=== PATIENT | male | born 1945 | race Caucasian/White ===

== ENCOUNTER 2020-11-04 19:43 | Observation (INO) ==
[2020-11-04] MEDS ORDERED: Isovue-370 500 ML BOTTLE IVP ONE (19:55)
[2020-11-04 20:08] LABS: Hematocrit 48.1 % (37.5-50.1); Hemoglobin 16.2 g/dL (12.9-16.9); Mean Corpuscular HGB Conc 33.7 g/dL (31.6-35.5); Mean Corpuscular Hemoglobin 32.8 pg (28.0-33.3); Mean Corpuscular Volume 97.4 fL (83.0-100.0); Mean Platelet Volume 10.6 fL (9.4-12.4); Platelet Count 194 K/mcL (140-400); Red Blood Count 4.94 M/mcL (4.19-5.50); Red Cell Distribution Width 12.7 % (11.5-14.5); White Blood Count 8.4 K/mcL (4.3-11.1)
[2020-11-04 20:18] LABS: Activated Partial Thrombo Time 31.9 Seconds (26.0-36.0)
[2020-11-04 20:30] LABS: BUN/Creatinine Ratio 16 (6-26); Blood Urea Nitrogen 17 mg/dL (8-23); Calcium 9.7 mg/dL (8.6-10.3); Carbon Dioxide 26 mEq/L (23-29); Chloride 106 mEq/L (98-107); Ethanol 19 mg/dL (Less than 10); Glucose 97 mg/dL (70-105); Osmolality,Calculated 291 (280-300); Potassium 3.7 mEq/L (3.5-5.1); Sodium 140 mEq/L (136-145); eGFR For African Americans > 60 (> 60); eGFR For Non-African Americans > 60 (> 60)
[2020-11-04 20:31] LABS: Troponin I < 0.03 ng/mL (< 0.04)
[2020-11-04 21:16] LABS: Bilirubin,Urine Negative (Negative); Blood,Urine Negative (Negative); Clarity,Urine Clear (Clear); Color,Urine Colorless (Yellow); Glucose,Urine (UA) Normal (Normal); Ketones,Urine Negative (Negative); Leukocyte Esterase,Urine Negative (Negative); Nitrite,Urine Negative (Negative); Protein,Urine Negative (Neg-Trace); Specific Gravity,Urine 1.017 (1.010-1.025); Urobilinogen,Urine Normal (Normal)
[2020-11-04] MEDS ORDERED: Aspirin 325 MG TABLET PO ONE (21:30)
[2020-11-04] MEDS ORDERED: Acetaminophen 325 MG TABLET PO PRN (22:02)
[2020-11-04] MEDS ORDERED: Naloxone 0.4 MG/ML INJ IVP PRN (22:02)
[2020-11-04] MEDS ORDERED: Ondansetron ODT 4 MG TAB.RAPDIS SL PRN (22:02)
[2020-11-05 04:02] LABS: Basophils # 0.1 K/mcL (0.0-0.2); Basophils % 0.7 %; Eosinophils # 0.2 K/mcL (0.0-0.6); Eosinophils % 2.4 %; Hematocrit 45.5 % (37.5-50.1); Immature Granulocytes % 0.4 % (0-4); Lymphocytes # 1.3 K/mcL (0.6-4.6); Lymphocytes % 18.7 %; Mean Corpuscular Hemoglobin 32.7 pg (28.0-33.3); Mean Corpuscular Volume 99.1 fL (83.0-100.0); Mean Platelet Volume 10.8 fL (9.4-12.4); Monocytes # 0.8 K/mcL (0.0-1.3); Monocytes % 10.8 %; Neutrophils # 4.8 K/mcL (1.6-8.9); Platelet Count 170 K/mcL (140-400); Red Blood Count 4.59 M/mcL (4.19-5.50); Red Cell Distribution Width 12.7 % (11.5-14.5); White Blood Count 7.2 K/mcL (4.3-11.1)
[2020-11-05 04:22] LABS: Alanine Aminotransferase 15 Units/L (7-52); Albumin 3.7 g/dL (3.5-5.7); Albumin/Globulin Ratio 1.4 (1.1-2.2); Alkaline Phosphatase 76 Units/L (34-104); Aspartate Amino Transferase 16 Units/L (13-39); BUN/Creatinine Ratio 17 (6-26); Bilirubin,Total 0.4 mg/dL (0.3-1.0); Blood Urea Nitrogen 18 mg/dL (8-23); Calcium 9.3 mg/dL (8.6-10.3); Carbon Dioxide 28 mEq/L (23-29); Chloride 107 mEq/L (98-107); Chol/HDL Ratio 2.7 (0-4.9); Cholesterol 126 mg/dL (< 200); Globulin 2.6 g/dL (2.4-3.5); Glucose 98 mg/dL (70-105); HDL Cholesterol 46 mg/dL (40-59); LDL Cholesterol,Calculated 62 mg/dL (< 100); Magnesium 2.1 mg/dL (1.6-2.6); Osmolality,Calculated 294 (280-300); Phosphorous 3.7 mg/dL (2.7-4.5); Potassium 4.2 mEq/L (3.5-5.1); Sodium 141 mEq/L (136-145); Total Protein 6.3 g/dL (6.4-8.9); Triglycerides 91 mg/dL (< 150); eGFR For African Americans > 60 (> 60); eGFR For Non-African Americans > 60 (> 60)
[2020-11-05 04:34] LABS: Thyroid Stimulating Hormone 3.608 mcIU/mL (0.340-5.600)
[2020-11-05 04:45] LABS: Folate 8.3 ng/mL (3.0-16.0)
[2020-11-05] MEDS ORDERED: Perflutren Lipid Microsphere 1.3 ML in 0.9 % Sodium Chloride 8.7 ML IVP PRN (08:50)
[2020-11-05] MEDS ORDERED: Aspirin 81 MG TAB.CHEW PO SCH (10:15)
[2020-11-05] MEDS ORDERED: lisinopriL 5 MG TABLET PO SCH (10:15)
[2020-11-05] MEDS ORDERED: Cyanocobalamin (B-12) 1,000 MCG TABLET PO SCH (10:15)
[2020-11-05 11:30] VITALS: BP 147/81
[2020-11-06] MEDS ORDERED: lisinopriL 5 MG TABLET PO SCH (09:00)
== END 2020-11-05 13:57 | disposition home or self-care (01) ==
LOC: EMEROOARM 19:43 → 3BNU 19:43 → SUATTDRO 21:49 → 3BNU 22:34
PROVIDERS: ADMIT Student in an Organized Health Care Education/Training Program; ATTEND Internal Medicine

== ENCOUNTER 2021-11-26 12:45 | Inpatient (IN) ==
[2021-11-26] MEDS ORDERED: CeFAZolin Syr 2,000MG/20 ML 2,000 MG/20 ML SYRINGE IVPB ONE ×2 (13:15→14:15)
[2021-11-26] MEDS ORDERED: Ringers Solution, Lactated 1,000 ML IVC SCH (13:15)
[2021-11-26] MEDS ORDERED: Ondansetron 4 MG/2 ML VIAL ONE (13:17)
[2021-11-26] MEDS ORDERED: Lidocaine HCL 4 ML Topical Solution (Laryng-O-Jet Kit Sterile Pak) TP ONE (13:17)
[2021-11-26] MEDS ORDERED: Lidocaine -MPF 2% 5 ML VIAL ONE ×2 (13:17→19:13)
[2021-11-26] MEDS ORDERED: *HR* Rocuronium Bromide 50 MG/5 ML VIAL ONE (13:17)
[2021-11-26] MEDS ORDERED: *HR* Propofol 200 MG/20 ML VIAL IVP ONE (13:20)
[2021-11-26] MEDS ORDERED: *HR* FentaNYL (PF) 100 MCG/2 ML VIAL ONE ×2 (13:20→17:44)
[2021-11-26] MEDS ORDERED: ceFAZolin 1,000 MG, Sodium Chloride IRRigation 1,000 ML IR ONE (14:00)
[2021-11-26] MEDS ORDERED: *HR* FentaNYL (PF) 100 MCG/2 ML VIAL IVP PRN (14:12)
[2021-11-26] MEDS ORDERED: *HR* Remifentanil 2 MG VIAL IVP ONE (14:49)
[2021-11-26] MEDS ORDERED: Protamine Sulfate 50 MG/5 ML VIAL IVP ONE (15:12)
[2021-11-26] MEDS ORDERED: Heparin 1,000 UNITS/500 mL 500 ML ONE (15:12)
[2021-11-26] MEDS ORDERED: EPHEDrine 50 MG/ML VIAL ONE (15:58)
[2021-11-26] MEDS ORDERED: *HR* Heparin 5,000 UNIT/ML VIAL ONE ×2 (17:03→17:51)
[2021-11-26] MEDS ORDERED: Sugammadex Sodium 200 MG/2 ML VIAL IV ONE (18:50)
[2021-11-26] MEDS ORDERED: *HR* Labetalol 20 MG/4 ML SYRINGE IVP ONE (19:26)
[2021-11-26] MEDS ORDERED: Naloxone 0.4 MG/ML INJ IVP PRN (20:36)
[2021-11-26] MEDS ORDERED: Benzonatate 100 MG CAPSULE PO PRN (20:36)
[2021-11-26] MEDS ORDERED: Ondansetron 4 MG/2 ML VIAL IVP PRN (20:36)
[2021-11-26] MEDS ORDERED: *HR* Labetalol 20 MG/4 ML SYRINGE IVP PRN (20:36)
[2021-11-26] MEDS ORDERED: *HR* HYDROcodone/Acet 5/325 mg TABLET PO PRN (20:36)
[2021-11-26] MEDS ORDERED: Acetaminophen 325 MG TABLET PO PRN (20:36)
[2021-11-26] MEDS ORDERED: Loratadine 10 MG TABLET PO PRN (20:54)
[2021-11-27] MEDS: CeFAZolin 2 GM/100 ML BAG IVPB SCH ×3 (00:05→15:28)
[2021-11-27 04:13] LABS: Immature Granulocytes % 0.5 % (0-4); Lymphocytes # 0.4 K/mcL (0.6-4.6); Lymphocytes % 4.6 %; Mean Corpuscular HGB Conc 34.3 g/dL (31.6-35.5); Mean Corpuscular Hemoglobin 33.6 pg (28.0-33.3); Mean Corpuscular Volume 97.9 fL (83.0-100.0); Mean Platelet Volume 10.9 fL (9.4-12.4); Monocytes # 0.5 K/mcL (0.0-1.3); Monocytes % 5.1 %; Platelet Count 147 K/mcL (140-400); Red Blood Count 3.78 M/mcL (4.19-5.50); Red Cell Distribution Width 13.2 % (11.5-14.5); Segmented Neutrophils % 89.8 %; White Blood Count 8.9 K/mcL (4.3-11.1)
[2021-11-27 04:15] LABS: Hemoglobin 12.7 g/dL (12.9-16.9)
[2021-11-27 04:41] LABS: BUN/Creatinine Ratio 16 (6-26); Blood Urea Nitrogen 15 mg/dL (8-23); Calcium 8.1 mg/dL (8.6-10.3); Carbon Dioxide 19 mEq/L (23-29); Chloride 108 mEq/L (98-107); Glucose 171 mg/dL (70-105); Osmolality,Calculated 287 (280-300); Potassium 4.2 mEq/L (3.5-5.1); Sodium 136 mEq/L (136-145); eGFR For African Americans > 60 (> 60); eGFR For Non-African Americans > 60 (> 60)
[2021-11-27 07:21] VITALS: O2SAT 97
[2021-11-27] MEDS ORDERED: Aspirin Enteric Coated 81 MG Tablet PO SCH (09:00)
[2021-11-27 11:11] VITALS: TEMP 97.9
[2021-11-27 13:50] VITALS: BP 140/81; PULSE 84
[2021-12-05] MEDS ORDERED: ALIROCUMAB 75 MG/ML SQ SCH (09:00)
== END 2021-11-27 16:25 | disposition home or self-care (01) | DRG 39 ==
LOC: SAMDAY 12:45 → 2NNU 20:36
PROVIDERS: ADMIT Surgery Vascular Surgery; ATTEND Surgery Vascular Surgery